=== PATIENT | female | born 1990 | race Caucasian/White ===

== ENCOUNTER 2017-03-19 19:58 | Emergency (ER) | payer OTHER ==
[~2017-03-19] VITALS: Ht 149.9 cm; Wt 65.0 kg
[2017-03-19 20:13] VITALS: BP 141/80
== END 2017-03-19 23:57 | disposition left against medical advice (07) ==
LOC: ER 20:52
DX: Z53.21 Procedure and treatment not carried out due to patient leaving prior to being seen by health care provider (principal)

== ENCOUNTER 2022-12-18 13:23 | Emergency (ER) | payer MEDICAID, OTHER ==
[~2022-12-18] VITALS: Ht 149.9 cm; Wt 76.0 kg
[2022-12-18 13:33] VITALS: BP 136/71; PULSE 108; RESP 20; TEMP 98.7; O2SAT 97
[2022-12-18] MEDS ORDERED: ACET-2708 MT (15:10)
== END 2022-12-18 15:32 | disposition home or self-care (01) ==
LOC: ER 13:23
DX: S93.401A Sprain of unspecified ligament of right ankle, initial encounter (principal); X58.XXXA Exposure to other specified factors, initial encounter; Y93.89 Activity, other specified; Y92.89 Other specified places as the place of occurrence of the external cause; Y99.8 Other external cause status
CPT/HCPCS: 81025; 73610; 99283; Z7610

== ENCOUNTER 2024-10-09 21:45 | Emergency (ER) | payer SELFPAY ==
[~2024-10-09] VITALS: Ht 149.9 cm; Wt 77.0 kg
[~2024-10-09 21:45] MED LIST: ACET-2708 MT
[2024-10-09 21:49] VITALS: O2SAT 95
[2024-10-09 22:14] VITALS: BP 144/90; PULSE 93; RESP 16; TEMP 36.6; O2SAT 100
[2024-10-09] MEDS: KETOROLAC 30MG/ML VIAL IM ONE (22:40)
[2024-10-09] MEDS: METOCLOPRAMIDE HCL 10MG TABLET PO ONE (22:40)
[2024-10-09] MEDS ORDERED: IBUP-2029 MT (23:42)
== END 2024-10-09 23:58 | disposition home or self-care (01) ==
LOC: ER 21:45
DX: R51.9 Headache, unspecified (principal)
CPT/HCPCS: 99283; 81025; 96372; J1885; J8597